=== PATIENT | female | born 1970 | race Two or more races ===

== ENCOUNTER → 2016-10-19 | Outpatient (CLI) | payer OTHER ==
--- NOTE | 2016-10-19 11:42 | US ---
Bilateral Breast Ultrasound, complete History: Pain outer right and upper outer left breast with palpable nodule outer right breast Technique: I first performed a directed physical examination. This was followed by ultrasound exam with a high frequency linear transducer of the breast and axilla. Comparison: outside ultrasound and mammogram May 14, 2016 Findings: There are scattered simple cysts throughout both breasts. There is no axillary adenopathy. Right breast: Correlating to a palpable mass in the outer right breast is a large simple cyst measuri ng 3 cm maximum diameter. Multiple other smaller cysts are present throughout the breast. Left breast. In the upper outer quadrant there is nodularity that corresponds to multiple small simpl e cysts the largest of which measures approximately 1.1 cm. Multiple other smaller cysts are present throughout the breast. Impression: Fibrocystic condition. If the patient develops a recalcitrant painful cyst, then therapeu tic ultrasound guided cyst aspiration and air injection could be performed. The patient was counsele d about caffeine intake, possibly taking low dose [id number] pain medication and/or using brocc yeni extract to help with her breast pain. BI-RADS 2. Benign. Recommendation: Screening mammography in May 2017.
== END ==
LOC: FIMAGING 09:59
DX: N60.11 Diffuse cystic mastopathy of right breast (principal); N60.12 Diffuse cystic mastopathy of left breast